=== PATIENT | male | born 1995 | race Caucasian/White ===

== ENCOUNTER 2021-01-20 12:53 | Emergency (ER) | payer OTHER, SELFPAY ==
--- OUTSIDE RECORDS SUMMARY | 2021-01-20 12:56 | XMS REPORT | Continuity of Care Document ---
:1995 Author Organization [facility] t Address Critical access hospital[address] [place]rade [address] [place] [id number] Care Team Providers Name Role Phone Unavailable Unavailable Unavailable Problems This patient has no known problems. Allergies, Adverse Reactions, Alerts This patient has no known allergies or adverse reactions. Medications This patient has no known medications. Procedures This patient has no known procedures. Results This patient has no known results.
[2021-01-20] MEDS ORDERED: LIDOCAINE 1% MPF 5 ML VIAL ONE (13:50)
[2021-01-20] MEDS ORDERED: AMOX/K CLAV 875 MG TAB ONE (13:50)
--- NOTE | 2021-01-20 14:28 | ER ---
Nurse's Notes [facility] Name: Yo Trujillo Age: 25 yrs Sex: Male : 1995 Arrival Date: 01/20/2021 Time: 12:54 Bed 13 Private MD: Diagnosis: Bitten by dog;Laceration without foreign body of left forearm;Abrasion and laceration of right cheek Presentation: 01/20 13:06 Chief complaint: Patient states: [id number] Lac on L ca1 forearm and R side of face. Coronavirus screen: Client denies travel out of the [place] in the last 14 days. At this time, the client does not indicate any symptoms associated with coronavirus-19. Ebola Screen: Patient negative for fever greater than or equal to 101.5 degrees Fahrenheit, and additional compatible Ebola Virus Disease symptoms Patient denies exposure to infectious person. Patient denies travel to an Ebola-affected area in the 21 days before illness onset. No symptoms or risks identified at this time. Initial Sepsis Screen: Does the patient meet any 2 criteria? No. Patient's initial sepsis screen is negative. Does the patient have a suspected source of infection? No. Patient's initial sepsis screen is negative. Risk Assessment: Do you want to hurt yourself or someone else? Patient reports no desire to harm self or others. Onset of symptoms was January 19, 2021. 13:06 Method Of Arrival: Ambulatory ca1 13:06 Acuity: TIEN 4 ca1 Historical: - Allergies: 13:08 No Known Allergies; ca1 - Home Meds: 13:08 None [Active]; ca1 - PMHx: 13:08 None; ca1 - PSHx: 13:08 Appendectomy; Cholecystectomy; ca1 - Immunization history:: Last tetanus immunization: unknown, Flu vaccine is not up to date. - Social history:: Smoking status: Patient reports the use of cigarette tobacco products, smokes two packs cigarettes per day. Screenin:45 Abuse screen: Denies threats or abuse. Denies injuries from another. Nutritional jl7 screening: No deficits noted. Tuberculosis screening: No symptoms or risk factors identified. Fall Risk None identified. Assessment: 13:18 Reassessment: Called [facility]. Spoke with Suyapa. ca1 13:45 General: Appears in no apparent distress. uncomfortable, Behavior is calm, cooperative, jl7 appropriate for age. Pain: Complains of pain in palmar aspect of left forearm Pain currently is 8 out of 10 on a pain scale. Neuro: Level of Consciousness is awake, alert, obeys commands, Oriented to person, place, time, situation. Cardiovascular: Patient's skin is warm and dry. Respiratory: Airway is patent Respiratory effort is even, unlabored, Respiratory pattern is regular, symmetrical. Derm: Skin is healthy with good turgor, Skin is dry, Skin is pink, warm \T\ dry. Injury Description: Laceration sustained to palmar aspect of left forearm was sustained 12-24 hours ago. a small amount of bleeding noted at this time. Vital Signs: 13:06 BP 129 / 75; Pulse 55; Resp 16 S; Temp 97.3(TE); Pulse Ox 95% on R/A; Weight 79.38 kg ca1 (R); Height 5 ft. 11 in. (180.34 cm) (R); Pain 8/10; 13:06 Body Mass Index 24.41 (79.38 kg, 180.34 cm) ca1 ED Course: 12:54 Patient arrived in ED. am2 13:08 Triage completed. ca1 13:08 Arm band placed on right wrist. ca1 13:13 Regina Oden [facility]NP-C [facility] kb 13:13 Wilman Jin MD is Attending Physician. kb 13:29 Fátima Hopson RN is Primary Nurse. jl7 13:45 Patient has correct armband on for positive identification. Bed in low position. Call jl7 light in reach. Side rails up X 1. 14:47 No provider procedures requiring assistance completed. Patient did not have IV access jl7 during this emergency room visit. Administered Medications: 13:40 Drug: Augmentin (Amoxicillin-Clavulanate) 875 mg Route: PO; jl7 14:45 Follow up: Response: No adverse reaction jl7 14:00 Drug: Lidocaine (1 %) 1 vials {Note: administered by ERP.} Volume: 5 ml; Route: jl7 Infiltration; 14:45 Follow up: Response: No adverse reaction jl7 14:44 Drug: Tetanus-Diphtheria Toxoid Adult 0.5 ml {Supervisor Cell Efficiency: [employer]. Exp: jl7 04/10/2022. Lot #: [id number]. } Route: IM; Site: left deltoid; 14:54 Follow up: Response: No adverse reaction jl7 Outcome: 14:28 Discharge ordered by MD. harding 14:47 Discharged to home ambulatory. jl7 14:47 Condition: stable 14:47 Discharge instructions given to patient, Instructed on discharge instructions, follow up and referral plans. medication usage, Demonstrated understanding of instructions, follow-up care, medications, Prescriptions given X 1. 14:51 Patient left the ED. jl7 Signatures: Regina Oden, COURT TRANSCRIBER-C WILLIAM-Fátima Jaramillo RN RN jl7 Mecca Mendoza Cheryl RN RN ca1 Corrections: (The following items were deleted from the chart) 13:21 13:18 Reassessment: Called [facility] Department. Case # [id number] ca1
--- NOTE | 2021-01-20 14:29 | EDPHYS ---
Physician Documentation [facility] Name: Yo Trujillo Age: 25 yrs Sex: Male : 1995 Arrival Date: 01/20/2021 Time: 12:54 Bed 13 Private MD: ED Physician Wilman Jin HPI: 01/20 14:32 This 25 yrs old Male presents to ER via Ambulatory with complaints of Dog kb Bite. 14:32 The patient was bitten on the palmar aspect of left forearm and right cheek, by a dog, kb for an unknown reason, outdoors. Onset: The symptoms/episode began/occurred yesterday. Animal information: Patient/Caregiver unable to provide information related to the animal. Secondary to the bite the patient reports an abrasion, multiple lacerations, that are superficial, that are deep, with the longest being 4 cm(s). Associated signs and symptoms: Pertinent positives: pain at site, tenderness. Severity of symptoms: At their worst the symptoms were moderate, in the emergency department the symptoms are unchanged. The patient has not experienced similar symptoms in the past. The patient has not recently seen a physician. Historical: - Allergies: 13:08 No Known Allergies; ca1 - Home Meds: 13:08 None [Active]; ca1 - PMHx: 13:08 None; ca1 - PSHx: 13:08 Appendectomy; Cholecystectomy; ca1 - Immunization history:: Last tetanus immunization: unknown, Flu vaccine is not up to date. - Social history:: Smoking status: Patient reports the use of cigarette tobacco products, smokes two packs cigarettes per day. ROS: 14:30 Constitutional: Negative for fever, chills, and weight loss, MS/Extremity: Negative for kb injury and deformity, Neuro: Negative for headache, weakness, numbness, tingling, and seizure. 14:30 Skin: Positive for laceration(s), of the right cheek and palmar aspect of left forearm. Exam: 14:30 Constitutional: This is a well developed, well nourished patient who is awake, alert, kb and in no acute distress. Respiratory: Respirations even and unlabored. No increased work of breathing, no retractions or nasal flaring. MS/ Extremity: Pulses equal, no cyanosis. Neurovascular intact. Full, normal range of motion. Neuro: Awake and alert, GCS 15, oriented to person, place, time, and situation. Moves all extremities. Normal gait. 14:30 Head/face: Noted is no obvious of injury or deformity except abrasion(s), that are mild, of the right cheek, a laceration(s), that is superficial, of the right cheek. 14:30 Skin: injury, bite(s), superficial, of the palmar aspect of left forearm and right cheek. 14:31 Skin: injury, bite(s), deep, of the palmar aspect of left forearm. kb Vital Signs: 13:06 BP 129 / 75; Pulse 55; Resp 16 S; Temp 97.3(TE); Pulse Ox 95% on R/A; Weight 79.38 kg ca1 (R); Height 5 ft. 11 in. (180.34 cm) (R); Pain 8/10; 13:06 Body Mass Index 24.41 (79.38 kg, 180.34 cm) ca1 Laceration: 14:25 Wound Repair of 4cm ( 1.6in ) subcutaneous laceration to palmar aspect of left forearm. kb Linear shaped.. gaping open. Distal neuro/vascular/tendon intact. Anesthesia: Wound infiltrated with 5 mls of 1% lidocaine. Wound prep: Extensive cleansing with hibiclenz by me, Wound irrigation with saline by me. Skin closed with 3 4-0 Prolene using simple sutures and sterile technique. Patient tolerated well. MDM: 13:14 Patient medically screened. kb 14:25 Data reviewed: vital signs, nurses notes. Data interpreted: Pulse oximetry: on room air kb is 95 %. Interpretation: normal. Counseling: I had a detailed discussion with the patient and/or guardian regarding: the historical points, exam findings, and any diagnostic results supporting the discharge/admit diagnosis, the need for outpatient follow up, a family practitioner, to return to the emergency department if symptoms worsen or persist or if there are any questions or concerns that arise at home. ED course: 3 loose sutures placed to approximate laceration due to width. Pt educated on increased risk of infection due to MOA (dog bite) and time since laceration occurred. Educated to complete entire course of antibiotics. Verbal understanding received. . 01/20 13:27 Order name: Prolene, Sutures; Complete Time: 14:45 kb 01/20 13:27 Order name: Dressing - Wound; Complete Time: 14:45 kb 01/20 13:27 Order name: Gloves, Sterile; Complete Time: 13:39 kb 01/20 13:27 Order name: Setup Suture Tray; Complete Time: 13:39 kb Administered Medications: 13:40 Drug: Augmentin (Amoxicillin-Clavulanate) 875 mg Route: PO; jl7 14:45 Follow up: Response: No adverse reaction jl7 14:00 Drug: Lidocaine (1 %) 1 vials {Note: administered by ERP.} Volume: 5 ml; Route: jl7 Infiltration; 14:45 Follow up: Response: No adverse reaction 7 14:44 Drug: Tetanus-Diphtheria Toxoid Adult 0.5 ml {Nailing Machine Feeder: [employer] Exp: jl7 04/10/2022. Lot #: [id number]. } Route: IM; Site: left deltoid; 14:54 Follow up: Response: No adverse reaction jl7 Disposition: 18:29 Co-signature as Attending Physician, Wilman Jin MD I agree with the assessment and 4 plan of care. Disposition: 01/20/21 14:28 Discharged to Home. Impression: Bitten by dog, Laceration without foreign body of left forearm, Abrasion and laceration of right cheek. - Condition is Stable. - Discharge Instructions: Animal Bite, [id number], Laceration Care, Adult, [id number]. - Prescriptions for Augmentin 875- 125 mg Oral Tablet - take 1 tablet by ORAL route every 12 hours for 10 days; 20 tablet. - Medication Reconciliation Form, Thank You Letter, Antibiotic Education, Prescription Opioid Use, Work release form form. - Follow up: Emergency Department; When: As needed; Reason: Worsening of condition. Follow up: Private Physician; When: 2 - 3 days; Reason: Recheck today's complaints, Continuance of care, Re-evaluation by your physician. Signatures: Regina Oden FNP-C FNP-Fátima Jaramillo RN RN jl7 Wadley, Terrence, MD MD tw4 Karen Perez RN RN ca1 Corrections: (The following items were deleted from the chart) 14:51 14:28 01/20/2021 14:28 Discharged to Home. Impression: Bitten by dog; Laceration jl7 without foreign body of left forearm; Abrasion and laceration of right cheek. Condition is Stable. Forms are Medication Reconciliation Form, Thank You Letter, Antibiotic Education, Prescription Opioid Use. Follow up: Emergency Department; When: As needed; Reason: Worsening of condition. Follow up: Private Physician; When: 2 - 3 days; Reason: Recheck today's complaints, Continuance of care, Re-evaluation by your physician. kb
[2021-01-20 14:59] VITALS: BP 129/75; TEMP 97.3; O2SAT 95
[2021-01-20] MEDS ORDERED: TETANUS & DIPHTHERIA TOX,ADULT 0.5 ML VIAL ONE (14:59)
== END 2021-01-20 14:51 | disposition home or self-care (01) ==
LOC: ER 12:53
PROC: 0JQH0ZZ Repair Left Lower Arm Subcutaneous Tissue and Fascia, Open Approach (ICD-10-PCS; principal; 2021-01-20)
DX: S51.812A Laceration without foreign body of left forearm, initial encounter (principal); S01.411A Laceration without foreign body of right cheek and temporomandibular area, initial encounter; W54.0XXA Bitten by dog, initial encounter; Y93.9 Activity, unspecified; Y92.89 Other specified places as the place of occurrence of the external cause; Z23 Encounter for immunization; F17.210 Nicotine dependence, cigarettes, uncomplicated
CPT/HCPCS: 90471; 90714; 99283